=== PATIENT | male | born 2005 | race Caucasian/White ===

== ENCOUNTER 2025-05-26 23:19 | Emergency (ER) | payer OTHER, SELFPAY ==
--- OUTSIDE RECORDS SUMMARY | 2025-05-26 23:41 | XMS_ITS | Clinical Summary ---
Author Organization [facility] Address [address] 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
[2025-05-27 00:33] VITALS: BP 120/63; PULSE 58; TEMP 37; O2SAT 99; BMI 20.8
--- NOTE | 2025-05-27 00:43 | XR_ITS ---
[facility] [place] [id number] Patient Name: CHARLES CINTRON JR MRN: [id number] date: 2005 Sex: M Assigned Patient Location: ER Current Patient Location: ED.MAIN Accession/Order Number: [id number] Exam Date: 05/27/2025 08:28 Report Date: 05/27/2025 08:30 At the request of: ABDOUL GARCIA MD Procedure: XR abdomen 1V Single view abdomen INDICATION: Foreign body, facial right flank COMPARISON: None FINDINGS: No radiopaque foreign body identified within the [id number]. Nonspecific nonspecific bowel gas pattern. No radiopaque calcifications overlying the renal shadows. Osseous structures unremarkable visualized. XR/XR abdomen 1V IMPRESSION: Negative for radiopaque foreign body. Nonspecific bowel gas pattern. Impression dictated by: Ced Mason M.D. 05/27/2025 8:30 AM Dictation Location: [place] [id number] Electronically authenticated by: [id number] Y Date: 05/27/2025 08:30
--- NOTE | 2025-05-27 00:43 | ED.SKABFB1 ---
HPI - Skin/Abscess/Foreign Bdy General Chief complaint: Skin/Abscess/Foreign Body Stated complaint: FISHING HOOK IN RIGHT SIDE Time Seen by Provider: 05/27/25 00:39 Source: patient Mode of arrival: walk-in Limitations: no limitations History of Present Illness HPI narrative: patient states fish hook caught right flank. Family member reportedly cut the hook but they feel the zaira is still in the skin and present to have it removed. no other complaint Related Data Allergies Allergy/AdvReac Type Severity Reaction Status Date / Time No Known Drug Allergies Allergy Verified 05/27/25 00:38 Review of Systems ROS Status of ROS 10 or more systems reviewed and unremarkable except as noted in history and below PFSH PFSH Social History Little interest or pleasure in doing things: not at all Feeling down, depressed, or hopeless: not at all Exam Constitutional Vital Signs, click to edit/add: Last Vital Signs Temp 98.6 F 05/27/25 00:33 Pulse 58 L 05/27/25 00:33 Resp 18 05/27/25 00:33 BP 120/63 05/27/25 00:33 Pulse Ox 99 05/27/25 00:33 O2 Del Method Room Air 05/27/25 00:33 Common normals: no apparent distress, average body habitus, oriented x3, no limitations, healthy appearing, alert and well nourished [facility] Common normals: normocephalic and head/scalp atraumatic Respiratory Common normals: normal respiratory effort, no retractions, no use of accessory muscles and clear to auscultation bilaterally Cardio Common normals: regular rate, regular rhythm, S1 normal heart sound and S2 normal heart sound GI GI image (male):  1. small superficial pin size cut right flank.no obvious palpable FB Extremity Common normals: normal to inspection and full ROM Neuro Common normals: oriented x3, CN's II-XII intact bilaterally, moves all extremities and no focal motor deficits Psych Appearance: grossly normal Course Vital Signs Vital signs: Vital Signs Temperature 98.6 F 05/27/25 00:33 Pulse Rate 58 L 05/27/25 00:33 Respiratory Rate 18 05/27/25 00:33 Blood Pressure 120/63 05/27/25 00:33 Pulse Oximetry 99 05/27/25 00:33 Oxygen Delivery Method Room Air 05/27/25 00:33 Temperature 98.6 F 05/27/25 00:33 Pulse Rate 58 L 05/27/25 00:33 Respiratory Rate 18 05/27/25 00:33 Blood Pressure 120/63 05/27/25 00:33 Pulse Oximetry 99 05/27/25 00:33 Oxygen Delivery Method Room Air 05/27/25 00:33 MDM - Skin/Abscess/Foreign Bdy MDM Narrative Medical decision making narrative: presents complaining of retained fish hook zaira right flank. Fish hook was cut off by family member and they believe the zaira is still in place. xray ordered as there is no obvious palpable FB xray reviewed and per my review there is no evidence of FB. Patient re examined and palpation of the site also has no evidence of FB patient informed of the above. Given tetanus and dose of augmentin and discharged home Discharge Plan Discharge Chief Complaint: Skin/Abscess/Foreign Body Clinical Impression: Puncture wound of abdominal wall Patient Disposition: Home, Self-Care Print Language: Kyrgyz Instructions: Puncture Wound (ED) Additional Instructions: have wound recheck next week Referrals: Physician,Non-Staff, MD [Primary Care Provider] - 1 week
[2025-05-27] MEDS: AMOXICILLIN/POT CLAV 875-125 MG TABLET 1 TAB PO (01:32)
[2025-05-27] MEDS: ADACEL DIPH,PERTUSS(ACELL),TET VAC/PF 0.5 ML ADULT SYRINGE IM (01:32)
== END 2025-05-27 01:43 | disposition home or self-care (01) ==
PROVIDERS: Emergency Provider Internal Medicine
DX: S31.139A Puncture wound of abdominal wall without foreign body, unspecified quadrant without penetration into peritoneal cavity, initial encounter (principal); W45.8XXA Other foreign body or object entering through skin, initial encounter; Z23 Encounter for immunization
CPT/HCPCS: 74018; 90471; 90715; 99284